=== PATIENT | female | born 1940 | race Hispanic/Latino ===

== ENCOUNTER → 2018-06-09 | Outpatient (CLI) | payer MEDICARE ==
--- NOTE | 2018-06-09 09:14 | Diagnostic Imaging Report ---
Exam: Head CT without contrast History: Right leg and arm weakness and numbness Comparison studies: None Technique: Axial images were obtained from the skull base to the vertex. Coronal and sagittal images reconstructed from the axial data. Dose modulation, iterative reconstruction, and/or weight based adjustment of the mA/kV was utilized to reduce the radiation dose to as low as reasonably achievable. Radiation dose: Total DLP: 921 mGy*cm. Estimated effective dose: DLP x 0.015 Intravenous contrast: None Findings: Scalp: No abnormalities. Bones: No fractures, blastic or lytic lesions. Brain sulci: Appropriate for age. Ventricles: Normal in size and configuration. No hydrocephalus. Extra-axial spaces: No masses, no fluid collection. Parenchyma: Ill-defined and confluent hypodensities throughout the supratentorial white matter are nonspecific but most compatible with chronic microvascular ischemic changes. Degree of white matter changes limited evaluation for potential acute subcortical ischemia. There are chronic lacunar infarcts in the bilateral subinsular region and right thalamus. Hypodensities in the basal ganglia may also represent chronic lacunar infarcts and/or prominent perivascular spaces. No mass, acute hemorrhage or acute cortical infarct. Sellar/suprasellar region: No abnormalities. Craniocervical junction: Patent foramen magnum. No Chiari one malformation. Incidental findings: Calcified atherosclerosis in the carotid siphons IMPRESSION: 1. No mass, acute hemorrhage or acute cortical infarct. 2. Moderate chronic microvascular ischemic changes with chronic lacunar infarcts as described. Signed by: Dr. Srinivas Corea M.D. on 06/09/2018 9:10 AM
== END ==
LOC: CT 08:13
PROVIDERS: ATTEND Internal Medicine Cardiovascular Disease
DX: I69.851 Hemiplegia and hemiparesis following other cerebrovascular disease affecting right dominant side (principal)
CPT/HCPCS: 70450